=== PATIENT | female | born 1995 | race Two or more races ===

== ENCOUNTER 2022-12-18 22:36 | Emergency (ER) | payer OTHER ==
[~2022-12-18] VITALS: Ht 157.5 cm; Wt 79.5 kg
[2022-12-19 02:23] VITALS: BP 116/71
== END 2022-12-19 02:29 | disposition home or self-care (01) ==
LOC: ER 22:36
DX: S01.01XD Laceration without foreign body of scalp, subsequent encounter (principal); S20.211D Contusion of right front wall of thorax, subsequent encounter; W22.8XXD Striking against or struck by other objects, subsequent encounter
CPT/HCPCS: 70450; 71250; 72125; 74176